=== PATIENT | female | born 2000 | race Asian ===

== ENCOUNTER 2022-07-31 11:28 | Emergency (ER) | payer BC, SELFPAY ==
[2022-07-31 11:38] VITALS: BP 115/77; PULSE 76; RESP 18; TEMP 36.8; O2SAT 100; BMI 24.3
[2022-07-31 12:19] LABS: COVID-19 Test Negative (Negative); IDNOW Serial# 55D5AD1C
[2022-07-31 12:28] LABS: Alanine Aminotransferase 9 U/L (0-31); Albumin Level 4.5 g/dL (3.5-5.0); Alkaline Phosphatase 59 U/L (39-117); Anion Gap 12 (12-20); Aspartate Amino Transferase 17 U/L (5-31); Bilirubin Direct 0.2 mg/dL (0.0-0.5); Bilirubin Total 0.8 mg/dL (0.0-1.0); Blood Urea Nitrogen 8 mg/dL (9-16); Calcium 9.7 mg/dL (8.4-10.2); Carbon Dioxide 25 mmol/L (22-29); Chloride 107 mmol/L (96-108); Creatinine Clr Calc Pharmacy 93.5; Estimated Glomerular Filt Rate > 60; Ethanol < 10 mg/dL; Glucose Random 91 mg/dL (60-115); Lipase 13 U/L (8-78); Potassium 4.5 mmol/L (3.3-5.1); Sodium 139 mmol/L (135-145); Total Protein 7.2 g/dL (6.5-8.0)
[2022-07-31 14:20] LABS: Lithium 1.21 mmol/L (0.60-1.20)
--- NOTE | 2022-07-31 14:35 | ED_ITS ---
HPI - Psych General Chief Complaint: Psychiatric Symptoms Stated Complaint: SEC 12 per EMS Time Seen by Provider: 07/31/22 14:12 Related Data Home Medications Medication Instructions Recorded Confirmed bupropion HCl 150 mg 24 hr tablet, 150 mg PO QAM 07/31/22 07/31/22 extended release lithium carbonate 600 mg capsule 600 mg PO BID 07/31/22 07/31/22 lurasidone 80 mg tablet 80 mg PO QPM 07/31/22 07/31/22 quetiapine 25 mg tablet (Seroquel) 25 mg PO BEDTIME 07/31/22 07/31/22 Allergies Allergy/AdvReac Type Severity Reaction Status Date / Time No Known Allergies Allergy Verified 07/31/22 11:48 [facility] Social History Social History Alcohol intake: unknown Smoked in Last 30 Days: No Use of substances other than those prescribed or required for medical reasons: Unknown Advance Directives: No Advance Directives Information Provided: Yes Patient : No Physical Exam Vital Signs: Vital Signs: Last Vital Signs Temp 98.2 F 07/31/22 11:38 Pulse 76 07/31/22 11:38 Resp 18 07/31/22 11:38 BP 115/77 07/31/22 11:38 Pulse Ox 100 07/31/22 11:38 O2 Del Method 07/31/22 11:38 BMI result Body Mass Index 24.3 Medical Decision Making Lab Data 07/31/22 12:01 07/31/22 12:01 Labs: Lab Results 07/31/22 07/31/22 07/31/22 Range/Units 11:51 12:01 12:01 Sodium 139 (135-145) mmol/L Potassium 4.5 (3.3-5.1) mmol/L Chloride 107 (96-108) mmol/L Carbon Dioxide 25 (22-29) mmol/L Anion Gap 12 (12-20) BUN 8 L (9-16) mg/dL Creatinine 0.78 (0.5-1.4) mg/dL Estim Creat Clear Calc 93.5 Estimated GFR > 60 Random Glucose 91 (60-115) mg/dL Calcium 9.7 (8.4-10.2) mg/dL Total Bilirubin 0.8 (0.0-1.0) mg/dL Direct Bilirubin 0.2 (0.0-0.5) mg/dL AST 17 (5-31) U/L ALT 9 (0-31) U/L Alkaline Phosphatase 59 (39-117) U/L Total Protein 7.2 (6.5-8.0) g/dL Albumin 4.5 (3.5-5.0) g/dL Lipase 13 (8-78) U/L [place] (0.60-1.20) mmol/L Ethyl Alcohol < 10 Cancelled mg/dL COVID-19 ([facility]) Negative (Negative) COVID-19 Clin Com See Note 07/31/22 Range/Units 13:58 Sodium (135-145) mmol/L Potassium (3.3-5.1) mmol/L Chloride (96-108) mmol/L Carbon Dioxide (22-29) mmol/L Anion Gap (12-20) BUN (9-16) mg/dL Creatinine (0.5-1.4) mg/dL Estim Creat Clear Calc Estimated GFR Random Glucose (60-115) mg/dL Calcium (8.4-10.2) mg/dL Total Bilirubin (0.0-1.0) mg/dL Direct Bilirubin (0.0-0.5) mg/dL AST (5-31) U/L ALT (0-31) U/L Alkaline Phosphatase (39-117) U/L Total Protein (6.5-8.0) g/dL Albumin (3.5-5.0) g/dL Lipase (8-78) U/L [place] 1.21 H (0.60-1.20) mmol/L Ethyl Alcohol mg/dL COVID-19 ([facility]) (Negative) COVID-19 Clin Com Discharge Plan Discharge Clinical Impression: Depression, Suicide ideation Patient Disposition: Home, Self-Care Additional Instructions: Your comprehensive metabolic panel was normal. Your COVID-19 test was negative. Your lithium level was 1.21 which is okay. The therapeutic range is 0.6-1.2. The toxic range is greater than1.5. Your evaluated by our care team and they are recommending that you get into a partial outpatient program. Stop taking Wellbutrin at this time. Follow-up with your doctor in 2 days. Please return to the emergency department if your symptoms get worse or if you develop any symptoms that are concerning to you. Prescriptions: No Action quetiapine [Seroquel] 25 mg Tablet 25 mg PO BEDTIME lithium carbonate 600 mg Capsule 600 mg PO BID bupropion HCl 150 mg Tablet Extended Release 24 Hr 150 mg PO QAM lurasidone 80 mg Tablet 80 mg PO QPM Rx Instructions: must administer with food (at least 350 calories) Interventions: [place]-Suicide Risk Severity Scale Last Done: 07/31/22 11:43
--- NOTE | 2022-08-01 12:11 | MHC.CARE ---
Checked in with patient, she reports that she is having a better day, is enjoying the snow and is working to get off the wellbutrin w her prescriber. She is still interested in PHP loc, and referral to be sent today.
--- NOTE | 2022-08-02 12:44 | MHC.CARE ---
Referral for PHP sent to [facility] and [facility]
--- NOTE | 2022-08-03 10:23 | MHC.CARE ---
F/U call made to [facility] & completed verbal referral. Referral to [facility] also completed / re-faxed.
== END 2022-07-31 14:56 | disposition home or self-care (01) ==
PROVIDERS: Emergency Provider Emergency Medicine Emergency Medical Services
DX: F33.1 Major depressive disorder, recurrent, moderate (principal); R45.851 Suicidal ideations; Z20.822 Contact with and (suspected) exposure to COVID-19; Z20.828 Contact with and (suspected) exposure to other viral communicable diseases; Z79.899 Other long term (current) drug therapy
CPT/HCPCS: 36415; 80053; 80178; 82077; 82248; 83690; 87635; 99284; S9485